=== PATIENT | female | born 1980 | race Caucasian/White ===

== ENCOUNTER → 2016-04-10 | Outpatient (CLI) | payer BC ==
[~2016-04-10] MED LIST: GBPN100C PO; GBPN300C PO; OXYC1TAB87 PO
--- NOTE | 2016-04-10 09:06 | Diagnostic Imaging Report ---
PROCEDURE: US abdomen complete. TECHNIQUE: Multiple real-time grayscale images were obtained over the abdomen in various projections. Indication: Left upper quadrant pain for 5 days. Comparison: 01/05/2011. Discussion: Sonographic evaluation of the abdomen was performed. The liver appears normal in echotexture and size. No hepatic mass identified. The gallbladder appears normal without evidence of cholelithiasis, wall thickening, or pericholecystic fluid. No evidence of intra or extrahepatic biliary duct dilatation. The common bile duct is normal measuring 0.3 cm. The pancreas appears normal as visualized. The spleen appears normal in echotexture and size measuring 10.4 cm. The visualized aorta and IVC appear within normal limits. The bilateral kidneys appear normal in echotexture and size without evidence of hydronephrosis or renal mass. The right kidney measures 10.5 cm. The left kidney measures 9.5 cm. There is no ascites or abnormal bowel loops identified. No sonographic Booker sign was reported. Impression: 1. Unremarkable abdominal ultrasound. Dictated by: Dictated on workstation # [id number]
== END ==
LOC: RAD 07:22
PROVIDERS: ATTEND Family Medicine
DX: R10.12 Left upper quadrant pain (principal)
CPT/HCPCS: 76700